=== PATIENT | male | born 1960 | race Caucasian/White ===

== ENCOUNTER → 2025-06-29 | Day surgery (SDC) | payer OTHER ==
[~2025-06-29] MED LIST: AMLODIPINE BESY10 MG PO; AZELASTINE137 MCG/0. NS; COREG12.5 MG PO; FENTANYL CITRATE/PF 100MCG/2 ML INJ ONE; FINASTERIDE5 MG PO; GLIPIZIDE5 MG PO; HYGROTON25 MG PO; JARDIANCE25 MG PO; LIDOCAINE HCL 2% LOCAL INJ 5 ML SDV VIAL INJ ONE; LIPITOR10 MG PO; METFORMIN HCL500 MG PO; PROPOFOL IV EMULSION 10 MG/ML 20 ML VIAL ONE; PROPOFOL IV EMULSION 50 ML IV ONE; REFRESH PLUS1 EACH OU; REVATIO20 MG PO; SYNTHROID75 MCG PO; TESTOSTERO200 MG/1 M INJ; VITAMIN D3 PO; ZESTRIL10 MG PO
[2025-06-29] MEDS: LACTATED RINGER'S 1,000 ML ONE (09:01)
[2025-06-29 11:35] VITALS: TEMP 97.5
[2025-06-29 11:55] VITALS: BP 134/86; PULSE 71; RESP 18; O2SAT 96
== END | disposition home or self-care (01) ==
LOC: OR 08:28 → EDSEX 13:30
PROVIDERS: ATTEND Internal Medicine Gastroenterology
DX: Z12.11 Encounter for screening for malignant neoplasm of colon (principal); D12.2 Benign neoplasm of ascending colon; K55.9 Vascular disorder of intestine, unspecified; K29.70 Gastritis, unspecified, without bleeding; K29.80 Duodenitis without bleeding; K31.89 Other diseases of stomach and duodenum; K44.9 Diaphragmatic hernia without obstruction or gangrene; K63.3 Ulcer of intestine; K62.89 Other specified diseases of anus and rectum; K64.8 Other hemorrhoids; K64.4 Residual hemorrhoidal skin tags; G47.33 Obstructive sleep apnea (adult) (pediatric); I10 Essential (primary) hypertension; E78.5 Hyperlipidemia, unspecified; R05.9 Cough, unspecified; E11.9 Type 2 diabetes mellitus without complications; E03.9 Hypothyroidism, unspecified; M54.2 Cervicalgia; M54.9 Dorsalgia, unspecified; Z01.810 Encounter for preprocedural cardiovascular examination; Z79.84 Long term (current) use of oral hypoglycemic drugs; Z79.899 Other long term (current) drug therapy; Z68.38 Body mass index [BMI] 38.0-38.9, adult; Z87.01 Personal history of pneumonia (recurrent); Z87.891 Personal history of nicotine dependence
CPT/HCPCS: 36415; 43239; 45380; 45385; 82948; 93005; J2003; J2704 ×2; J3010; J7121